=== PATIENT | male | born 1995 | race Caucasian/White ===

== ENCOUNTER 2017-05-26 20:14 | Emergency (ER) | payer OTHER ==
--- NOTE | 2017-05-26 20:29 | PDOC ---
Rapid Medical Evaluation Time Seen by Provider: 05/26/17 20:25 Medical Evaluation: 05/26/17 20:25 I have performed a brief in-person evaluation of this patient. The patient presents with a chief complaint of: throat pain x 2 days, fever Pertinent physical exam findings: exudate to back of throat, no tonsillar swelling I have ordered the following: strep test The patient will proceed to the ED for further evaluation. Discharge Disposition - Diagnosis Sore throat - Referrals - Patient Instructions - Post Discharge Activity
[2017-05-26 20:54] VITALS: BP 107/51; PULSE 110; BMI 23.5
[2017-05-26] MEDS ORDERED: IBUPROFEN 600 MG TABLET (FP) PO ONE ×2 (21:48→22:12)
--- NOTE | 2017-05-26 22:14 | PDOC ---
History of Present Illness - General Chief Complaint: Sore Throat Stated Complaint: COLD SYMPTOMS Time Seen by Provider: 05/26/17 20:25 History Source: Patient Exam Limitations: No Limitations - History of Present Illness Initial Comments: 05/26/17 23:01 22-year-old male without significant past medical history who presents to the emergency department with 2 days of fevers, dry cough and sore throat. Patient states his girlfriend and his brother had been experiencing similar symptoms have been treated symptomatically. He denies headaches, chest pain, difficulty swallowing, vocal changes, nausea, vomiting, difficulty breathing. Past History - Past Medical History Allergies/Adverse Reactions: Allergies Allergy/AdvReac Type Severity Reaction Status Date / Time No Known Allergies Allergy Verified 05/26/17 22:05 Home Medications: Ambulatory Orders Amoxicillin - [Amoxicillin 500mg Capsule -] 500 mg PO BID #20 capsule 05/26/17 COPD: No - Suicide/Smoking/Psychosocial Hx Smoking History: Never smoked Have you smoked in the past 12 months: No Information on smoking cessation initiated: No Hx Alcohol Use: No Drug/Substance Use Hx: No Substance Use Type: None Review of Systems - Review of Systems Able to Perform ROS?: Yes Is the patient limited Lao proficient: No Constitutional: Yes: See HPI HEENTM: Yes: See HPI Respiratory: Yes: See HPI Cardiac (ROS): No: Symptoms Reported ABD/GI: No: Symptoms Reported : No: Symptoms Reported Musculoskeletal: No: Symptoms Reported Integumentary: No: Symptoms Reported Neurological: No: Symptoms reported Endocrine: No: Symptoms Reported Hematologic/Lymphatic: No: Symptoms Reported *Physical Exam - Vital Signs Last Vital Signs Temp Pulse Resp BP Pulse Ox 102.5 F H 110 H 18 107/51 97 05/26/17 20:26 05/26/17 20:26 05/26/17 20:26 05/26/17 20:26 05/26/17 20:26 - Physical Exam General Appearance: Yes: Appropriately Dressed. No: Apparent Distress HEENT: positive: TMs Normal, Pharyngeal Erythema, Tonsillar Exudate, Tonsillar Erythema Neck: positive: Tender, Trachea midline, Lymphadenopathy (R), Lymphadenopathy (L ). negative: Stridor Respiratory/Chest: positive: Lungs Clear, Normal Breath Sounds. negative: Respiratory Distress, Accessory Muscle Use Cardiovascular: positive: Regular Rhythm, Regular Rate. negative: Murmur Gastrointestinal/Abdominal: positive: Normal Bowel Sounds, Soft. negative: Tender Musculoskeletal: positive: Normal Inspection. negative: CVA Tenderness Extremity: positive: Normal Capillary Refill, Normal Inspection Integumentary: positive: Normal Color, Dry, Warm Neurologic: positive: Alert, Normal Response ED Treatment Course - ADDITIONAL ORDERS Additional order review: 05/26/17 20:30 Group A Strep Rapid Antigen - Final Throat Medical Decision Making - Medical Decision Making 05/26/17 23:03 A/P: 22-year-old male with 2 days of fever, cough, sore throat TMs within normal limits bilaterally. Oropharynx with pharyngeal erythema, tonsillar erythema and tonsillar exudate present Tender anterior cervical lymphadenopathy present No stridor auscultated Lungs clear to auscultation bilaterally RRR. No murmurs auscultated Strep versus viral pharyngitis Rapid strep testing is positive for group A streptococcal infection Amoxicillin 500 mg twice a day for the next 10 days as an outpatient Patient verbalizes understanding of discharge instructions *DC/Admit/Observation/Transfer Diagnosis at time of Disposition: Strep throat - Discharge Dispostion Condition at time of disposition: Stable Admit: No - Prescriptions Prescriptions: Amoxicillin - [Amoxicillin 500mg Capsule -] 500 mg PO BID #20 capsule - Referrals - Patient Instructions Printed Discharge Instructions: DI for Strep Throat Additional Instructions: Rest, drink lots of fluids: Teas, water, soups, Pedialyte Saltwater gargles Steamy showers/seem to face break up mucus Avoid contact with others until fevers and cough resolved Lots of handwashing and good hygiene Throw away your toothbrush in 3 days and start using a new one. Continue [id number] medications for symptomatic relief Tylenol or Motrin for fever and pain Amoxicillin 500mg twice a day for 10 days Followup with private physician in one to 2 days as needed Return to emergency department for worsened symptoms, fevers, dehydration - Post Discharge Activity
[2017-05-26 22:45] VITALS: TEMP 99.6
== END 2017-05-26 22:45 | disposition home or self-care (01) ==
LOC: JER 20:14 → JERFT 20:14
DX: J02.0 Streptococcal pharyngitis (principal); B95.0 Streptococcus, group A, as the cause of diseases classified elsewhere
CPT/HCPCS: 87070; 87077; 87430; 99281-25